=== PATIENT | male | born 1950 | race Caucasian/White ===

== ENCOUNTER 2021-12-18 08:02 | Day surgery (SDC) | payer MEDICARE, OTHER ==
[~2021-12-18] VITALS: Ht 177.8 cm; Wt 106.4 kg
[2021-12-18 08:34] VITALS: BP 139/88; PULSE 57; TEMP 98.7
[2021-12-18] MEDS ORDERED: FLEXERIL 1010 MG/TAB PO (08:39)
[2021-12-18] MEDS ORDERED: EPIPEN 2-PAK1 MG/ML IM (08:40)
[2021-12-18] MEDS ORDERED: FLOMAX 0.40.4 MG/CAP PO (08:40)
[2021-12-18] MEDS ORDERED: LIPITOR 40MG TA40 MG PO (08:41)
[2021-12-18] MEDS ORDERED: ZYRTEC 10MG10 MG PO (08:41)
[2021-12-18] MEDS ORDERED: NEURONTIN300 MG/CAP PO (08:41)
[2021-12-18] MEDS ORDERED: SUDAFED 24-HOU240 MG PO (08:42)
[2021-12-18] MEDS ORDERED: FLONASE NASAL S16 GM NS (08:42)
[2021-12-18] MEDS ORDERED: TYLENOL 8 HR PO (08:42)
[2021-12-18] MEDS ORDERED: CENTRUM1 TA1 PO (08:43)
[2021-12-18] MEDS ORDERED: GLUCOSAMINE 1000 PO (08:43)
[2021-12-18 12:10] VITALS: BP 135/86; PULSE 58; TEMP 96.8
[2021-12-18 12:25] VITALS: BP 136/89; PULSE 60
[2021-12-18 12:40] VITALS: BP 142/78; PULSE 64
--- NOTE | 2021-12-18 13:08 | NUR ---
1210: Patient brought back into bay 1 from endo procedure. Report received from RUTHIE Ambrose. Patient vitally stable on room air. Denies pain or nausea. Requesting muffins, vanilla pudding, orange juice, and sprite. at bedside. Call light left within reach. 1225: Patient tolerating food and drink well. Denies pain or nausea. Vital signs stable on room air. 1245: Dr. De Jesus in to see patient 1255: Patient meets discharge criteria. IV removed without complications. Went through discharge instructions. Questions answered. 1310: Patient got dressed and escorted to the patient entrance via wheelchair. Patient got into personal vehicle and left in the care of his , Yennifer.
== END 2021-12-18 13:05 | disposition home or self-care (01) ==
LOC: SDCO 08:02
DX: D12.5 Benign neoplasm of sigmoid colon (principal); K31.7 Polyp of stomach and duodenum; K20.90 Esophagitis, unspecified without bleeding; K64.2 Third degree hemorrhoids; K64.4 Residual hemorrhoidal skin tags; K29.51 Unspecified chronic gastritis with bleeding; D50.9 Iron deficiency anemia, unspecified; G47.33 Obstructive sleep apnea (adult) (pediatric); Z87.891 Personal history of nicotine dependence
CPT/HCPCS: J2704; J7120

== ENCOUNTER 2022-01-20 07:19 | Day surgery (SDC) | payer MEDICARE, OTHER ==
[~2022-01-20] VITALS: Ht 177.8 cm; Wt 105.4 kg
[~2022-01-20 07:19] MED LIST: CENTRUM1 TA1 PO; EPIPEN 2-PAK1 MG/ML IM; FLEXERIL 1010 MG/TAB PO; FLOMAX 0.40.4 MG/CAP PO; FLONASE NASAL S16 GM NS; GLUCOSAMINE 1000 PO; LIPITOR 40MG TA40 MG PO; NEURONTIN300 MG/CAP PO; SUDAFED 24-HOU240 MG PO; TYLENOL 8 HR PO; ZYRTEC 10MG10 MG PO
--- NOTE | 2022-01-20 07:45 | NUR ---
PATIENT STATES THAT THE STOOLS ARE STILL SLIGHTLY BROWN BUT ABLE TO SEE THE BOTTOM OF THE TOILET.
--- NOTE | 2022-01-20 08:15 | NUR ---
HAS STOOL PRIOR TO PROCEDURE. STOOL DARKER NOW. DR. OGLESBY VIEWS STOOL AND WILL RESCHEDULE TO THE PATIENT TO TUESDAY AND REPEAT THE PREP. IV DISCONTINUED AND PATIENT DISMISSED TO HOME ACCOMPANIED BY SPOUSE.
[2022-01-20 11:04] VITALS: BP 144/86; PULSE 55; TEMP 97.9
== END 2022-01-20 08:45 | disposition home or self-care (01) ==
LOC: SDCO 07:19
DX: Z12.11 Encounter for screening for malignant neoplasm of colon (principal); D50.9 Iron deficiency anemia, unspecified; Z86.010 Personal history of colon polyps; Z53.8 Procedure and treatment not carried out for other reasons; Z87.891 Personal history of nicotine dependence
CPT/HCPCS: J2704; J3010

== ENCOUNTER 2022-01-22 09:49 | Day surgery (SDC) | payer MEDICARE, OTHER ==
[~2022-01-22] VITALS: Ht 177.8 cm; Wt 104.7 kg
[2022-01-22 10:31] VITALS: BP 137/88; PULSE 58; TEMP 97.6
[2022-01-22 13:25] VITALS: BP 158/93; PULSE 62; TEMP 96.2
--- NOTE | 2022-01-22 13:25 | NUR ---
Patient arrives to [facility] bay [facility] via cart, accompanied by Endo RN. He is alert and oriented. He ambulates with steady gait to the chair in his room. Monitoring is applied- VSS and WNL on room air. PIV to TKO. He denies pain, states he has mild "discomfort" in the abdomen region. Denies nausea. He is offered and receives sprite and crackers to eat. Tolerating PO well.
[2022-01-22 13:40] VITALS: BP 143/91; PULSE 69
[2022-01-22 13:55] VITALS: BP 157/95; PULSE 57
--- NOTE | 2022-01-22 14:00 | NUR ---
Patient has met discharge criteria. Discharge instructions are discussed. He denies any questions and verbalizes understanding. PIV is removed with catheter intact and hemostasis achieved. He is changing to his clothing independently. RUTHIE Edmonds will escort to the exit via wheelchair at discharge.
== END 2022-01-22 14:04 ==
LOC: SDCO 09:49
DX: Z12.11 Encounter for screening for malignant neoplasm of colon (principal); D12.0 Benign neoplasm of cecum; D12.4 Benign neoplasm of descending colon; D64.9 Anemia, unspecified; Z86.010 Personal history of colon polyps; K57.30 Diverticulosis of large intestine without perforation or abscess without bleeding; K64.2 Third degree hemorrhoids; K64.4 Residual hemorrhoidal skin tags
CPT/HCPCS: J2704; J7120